=== PATIENT | male | born 1955 | race Caucasian/White ===

== ENCOUNTER → 2019-08-18 | Outpatient (CLI) | payer MEDICARE, BC ==
[~2019-08-18] MED LIST: ISOVUE-370 76% 100ML VIAL (Q9967) As Ordered ONE
--- NOTE | 2019-08-18 13:58 | REP ---
CT UROGRAM: CT ABDOMEN AND PELVIS WITHOUT AND WITH IV CONTRAST. Multiphase postcontrast imaging. HISTORY: Hematuria. CT CONTRAST DOSE: 100 mL of intravenous Isovue [address] FINDINGS: Preliminary digital unit nurse radiograph is unremarkable. The lung bases are clear on axial CT images. There is minimal diffuse fatty infiltration of the liver. No focal liver mass lesion is appreciated. No adrenal lesion is observed on either side. There are two small mineralized gallstones in the dependent portion the gallbladder. No abnormality is noted in the pancreas. There is a small descending duodenal diverticulum. The spleen is unremarkable. There is some mild vascular calcification. There is an intrarenal calculus in the lower pole of the left kidney at the level of the collecting system. This calculus measures 7 mm in greatest diameter. There is another calcification in the upper pole left kidney however this appears to be within the cortex and is compatible with a stone in the calyces diverticulum. There is some adjacent cortical scarring. This calculus measures 7 mm in diameter as well. There is no evidence of hydronephrosis on either side. No renal mass lesion is observed. No retroperitoneal mass is observed. There are surgical clips in the right inguinal soft tissues consistent with previous herniorrhaphy. There is post herniorrhaphy soft tissue density in the soft tissues just above the inguinal ligament measuring 3 cm in length x 1.4 cm right to left x 1.2 cm anterior to posterior. No definite inguinal hernia is seen. There is some lipomas infiltration of the spermatic cords bilaterally. There is a zone of marked mural thickening in the sigmoid colon with pericolonic fat streaking, luminal narrowing, and mild adjacent diverticulosis. There is an indurated irregular tract containing some air which extends to the dome of the urinary bladder. There is irregular mural thickening and enhancement in the dome of the urinary bladder at this level. 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 In addition, there is a pericolonic 2.5 cm density in the inferior pericolonic fat raising question of regional adenopathy. There is no other evidence of adenopathy. Bone window settings show no bony destructive lesion. IMPRESSION: 1. There is intrarenal nephrolithiasis left kidney without hydronephrosis. 2. 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 Colonoscopic correlation is suggested. 3. The patient is status post right inguinal herniorrhaphy. There is minimal diffuse fatty infiltration of the liver. Electronically Signed by Lester Fagan MD 08/18/2019 06:29 P
== END ==
LOC: M RAD 08:41
PROVIDERS: ATTEND Urology
DX: R31.0 Gross hematuria (principal)
CPT/HCPCS: 74178; Q9967

== ENCOUNTER → 2021-06-05 | Outpatient (CLI) | payer MEDICARE ==
--- NOTE | 2021-06-05 16:41 | REPVR ---
PROCEDURE INFORMATION: Exam: MR Thoracic Spine Without Contrast Exam date and time: 06/05/2021 12:13 PM Age: 66 years old Clinical indication: Condition or disease; Other: Melanoma with thoracic spine pain ? mets; Additional info: Melanoma w/ t spine pain ? mets TECHNIQUE: Imaging protocol: Multiplanar magnetic resonance images of the thoracic spine without contrast. COMPARISON: CT ABD PELVIS W/O FOL BY WIT 08/18/2019 9:11 AM FINDINGS: Vertebrae: There is no acute fracture. Alignment is anatomic. A small incidental hemangioma is present in the T11 vertebral body. Spinal cord: Normal signal. No cord compression. Discs/Spinal canal/Neural foramina: Mild degenerative changes of the thoracic spine are present. Mild diffuse circumferential disc bulging is present at T6-7, causing minimal canal stenosis. There is no severe spinal canal stenosis within the thoracic spine. Soft tissues: Unremarkable. IMPRESSION: 1. No acute abnormality. 2. Chronic findings as discussed above. Electronically signed by: Mikael Davis On 06/05/2021 16:40:37 PM
== END ==
LOC: M RAD 11:01
PROVIDERS: ATTEND Internal Medicine Cardiovascular Disease
DX: M51.34 Other intervertebral disc degeneration, thoracic region (principal); Z85.820 Personal history of malignant melanoma of skin

== ENCOUNTER → 2022-12-30 | Outpatient (CLI) | payer MEDICARE | LOC: M RAD 12:36 | PROVIDERS: ATTEND Surgery | DX: K43.2 Incisional hernia without obstruction or gangrene (principal) ==